=== PATIENT | male | born 1950 | race Caucasian/White ===

== ENCOUNTER 2017-06-03 18:35 | Inpatient (IN) | payer BC, MEDICARE ==
[2017-06-03] MEDS ORDERED: HYDROmorphone 0.5 MG/0.5 ML SYRINGE ONE (19:47)
[2017-06-03] MEDS ORDERED: Ondansetron HCl/PF 4 MG/2 ML Vial ONE (19:47)
--- NOTE | 2017-06-03 19:57 | RAD ---
LEFT KNEE THREE VIEWS: 06/03/17 HISTORY: Twisted knee. Total knee prosthesis is present. There is a comminuted more transversely oriented fracture of the di stal femoral shaft directly above the femoral component of the prosthesis. IMPRESSION: Distal femur fracture. POS: [facility]
[2017-06-03 20:20] LABS: INR-International Normal Ratio 1.1; PTT 26.7 SEC (22.9-36.1); Prothrombin Time 13.8 SEC (12.0-14.7)
--- NOTE | 2017-06-03 20:26 | RAD ---
AP PELVIS: 06/03/17 HISTORY: Fall with pelvic pain more left sided. Pelvic ring is intact without evidence of fracture. There are arthritic changes in the in the lower l umbar spine. IMPRESSION: No evidence of fracture. POS: [facility]
[2017-06-03 20:35] LABS: ALT (SGPT) 24 U/L (8-55); AST (SGOT) 23 U/L (5-34); Albumin 4.2 g/dL (3.4-4.8); Alkaline Phosphatase 67 U/L (40-150); Anion Gap 14 mmol/L (10-20); BUN (Urea Nitrogen) 37 mg/dL (8.4-25.7); Bilirubin, Total 0.8 mg/dL (0.2-1.2); Calc. Creatinine Clearance 0 mL/min (70-130); Calcium 9.5 mg/dL (7.8-10.44); Carbon Dioxide 22 mmol/L (23-31); Chloride 106 mmol/L (98-107); Estimated GFR-MDRD 50; Globulin 2.4 g/dL (2.4-3.5); Glucose 151 mg/dL (80-115); Potassium 4.1 mmol/L (3.5-5.1); Protein, Total 6.6 g/dL (5.8-8.1); Sodium 138 mmol/L (136-145)
--- NOTE | 2017-06-03 20:43 | RAD ---
PORTABLE CHEST: 06/03/17 HISTORY: Preop. Heart size and mediastinum are within normal limits. The lungs are clear of infiltrates. IMPRESSION: No active intrathoracic disease. POS: [facility]
[2017-06-03 21:04] LABS: #Basophils 0.1 thou/uL (0.0-0.2); #Eosinphils 0.1 thou/uL (0.0-0.7); #Lymphocytes 1.4 thou/uL (1.20-3.40); #Monocytes 0.7 thou/uL (0.11-0.59); %Basophils 0.6 % (0.0-1.0); %Eosinophils 0.8 % (0.0-10.0); %Lymphocytes 11.2 % (21.0-51.0); %Neutrophils 81.4 % (42.0-75.0); Hemoglobin 13.5 g/dL (14.0-18.0); Mean Corpuscular HGB CONC 33.9 g/dL (32.0-36.0); Mean Corpuscular Hemoglobin 32.8 pg (27.0-31.0); Mean Corpuscular Volume 96.7 fl (80.0-94.0); RBC Distribution Width 13.2 % (11.5-14.5); Red Blood Cell (RBC) Count 4.11 mill/uL (4.70-6.10); White Blood Cell (WBC) Count 12.3 thou/uL (4.8-10.8)
[2017-06-03 21:13] LABS: Mean Platelet Volume 8.7 fL (7.4-10.4); Platelet Count 146 thou/uL (130-400)
[2017-06-03 21:14] LABS: MDiff Complete? YES; Macrocytosis SLIGHT = 6-15 cells (100X) (0-5/hpf); PLT Morphology Comment Appears Adequate; Platelet Clumps MODERATE
[2017-06-03] MEDS ORDERED: Dextrose 5% in Water 1,000 ML IV PRN (22:19)
[2017-06-03] MEDS ORDERED: Ondansetron ODT 4 MG TAB PO PRN (22:19)
[2017-06-03] MEDS ORDERED: Morphine 5 MG/ML SYRINGE SLOW IVP PRN (22:19)
[2017-06-03] MEDS ORDERED: Ondansetron HCl/PF 4 MG/2 ML Vial IVP PRN (22:19)
[2017-06-03] MEDS ORDERED: Dextrose 50% Abboject 50 ML SYRINGE SLOW IVP PRN ×2 (22:19)
[2017-06-03] MEDS ORDERED: hydrALAZINE 20 MG/ML VIAL SLOW IVP PRN (22:19)
[2017-06-03] MEDS ORDERED: traMADol HCl 50 MG TAB PO PRN (22:19)
--- NOTE | 2017-06-03 23:04 | HP ---
DATE OF SERVICE: 06/03/2017 Flip Muñoz PA-C, dictating for Shmuel Way M.D. LOCATION: [facility] ER. CHIEF COMPLAINT: Evaluation status post fall. HISTORY OF PRESENT ILLNESS: This is a 67-year-old male with a presentation to the ER with a fall dallin roximately 2-1/2 hours prior to arrival. The patient reported that he was walking down steps, lost h is footing and one foot did not come with him. Pain was localized to left lower extremity and buttoc ks. Denied any pain anywhere else, any LOC or any other complaints pre or post-fall. REVIEW OF SYSTEMS: All 10 systems reviewed otherwise stated in HPI were negative. PAST MEDICAL HISTORY: Include diabetes, congestive heart failure, hyperlipidemia, sleep apnea, COPD, hypertension, coronary artery disease. PAST SURGICAL HISTORY: Includes bilateral knee surgeries, heart stent x1 in the last month, adenoid ectomy, cholecystectomy and tonsillectomy. ALLERGIES: DEMEROL. SOCIAL HISTORY: The patient does drink socially, but very rare. No tobacco use or drug use. Does l pavan at home with his . PHYSICAL EXAMINATION: VITAL SIGNS: Blood pressure 160/82, respiratory rate 16, temperature 98.5, 3/10 on pain 93% on room air. HEENT: He is atraumatic, normocephalic. Eyes 3 mm, equal, round, reactive to light. NECK: No JVD, no masses. Trachea is midline. No cervical spine tenderness in the midline. No ches t wall tenderness. RESPIRATORY: Clear bilaterally via auscultation. CARDIOVASCULAR: S1, S2 regular rate and rhythm. ABDOMEN: Soft, nontender, nondistended, obese. PELVIS: Intact. EXTREMITIES: Upper extremities are 5/5 strength. Sensation is intact. Positive pulses bilaterally. Lower extremities does have pulses intact. Sensation is intact. Tenderness to left tibial plateau as well as the distal femur area on the left. NEURO: GCS 15. SKIN: Warm, dry. LABORATORY DATA: Pending. RADIOLOGIC FINDINGS: Distal femur fracture. Chest x-ray and pelvic x-ray is pending. ASSESSMENT AND PLAN: 1. Status post fall, ground level. 2. Distal femur fracture, periprosthetic. 3. History of coronary artery disease. 4. History of diabetes. 5. History of hypertension. 6. Acute traumatic pain. PLAN: Admit the patient to the surgical floor. The patient's case has earlier been discussed with [facility] orthopedic, Dr. Cartagena. Most likely surgery tomorrow. Otherwise, the patient is stable. Pain vito l be controlled with IV and p.o. analgesics. He will be n.p.o. after midnight. We will start IV flu id at that time. We will initiate gastritis and DVT prophylaxis when appropriate. Patient has been discussed with Dr. Way who agrees with the above plan.
[2017-06-03 23:47] VITALS: BMI 34.2
[2017-06-04] MEDS: Sodium Chloride 0.9% 1,000 ML IV SCH ×2 (00:17→15:13)
[2017-06-04] MEDS: Acetaminophen 500 MG TAB PO SCH ×5 (00:17→23:23)
[2017-06-04] MEDS: Cyclobenzaprine 10 MG TAB PO PRN ×2 (00:17→09:50)
[2017-06-04] MEDS ORDERED: Carvedilol 6.25 MG TAB PO SCH (09:00)
[2017-06-04] MEDS ORDERED: Prevnar 13-Val Conj/PF 0.5 ML SYRINGE IM ONE (09:00)
[2017-06-04] MEDS: Valsartan 80 MG TAB PO SCH (09:50)
[2017-06-04] MEDS: Alfuzosin 10 MG TABDR...ER PO SCH (09:50)
[2017-06-04] MEDS: Allopurinol 300 MG TAB PO SCH ×2 (09:51→20:13)
[2017-06-04] MEDS ORDERED: CEFAZOLIN/Water 2 GM/20 ML SYRINGE SLOW IVP SCH (11:00)
--- NOTE | 2017-06-04 11:58 | CON ---
DATE OF CONSULTATION: 06/04/2017 CARDIOLOGY CONSULTATION REASON FOR CONSULTATION: Preoperative evaluation and CAD. HISTORY OF PRESENT ILLNESS: Mr. Byrne is a very pleasant 67-year-old white gentleman, who comes t o the hospital for having tripped, fell and broke the leg. He is scheduled to have surgery sometime today or tomorrow, awaiting cardiac clearance. He has a history of coronary artery disease 2 years a go. He had an abnormal stress test that ended up him needing heart catheterization, where he was fou nd to have one artery that was stented. He was on Plavix for a whole year after that and his last do se of Plavix was around a year ago. He has been on it since. He has not had any problems since. He denies any chest pain, tightness or pressure, no shortness of breath, no lightheadedness, no syncope or presyncope. He states that several years before the stent he had an episode where he had a weak heart. He was evaluated with another heart catheterization and was told that all the arteries were w ana open, and at that point, he was told that it was probably virus that made his heart weak. He was placed on several different medications for the heart and eventually the heart was back to normal. He states he was back to a 100%. He otherwise has no other issues for now. PAST MEDICAL HISTORY: 1. History of nonischemic cardiomyopathy in the past according to his report, more recently LV funct ion has been normal from his report. 2. Type 2 diabetes. 3. Hyperlipidemia. 4. Sleep apnea. 5. Chronic obstructive pulmonary disease. 6. Hypertension. 7. Coronary artery disease. PAST SURGICAL HISTORY: 1. Bilateral knee surgeries. 2. Coronary artery disease, status post stenting 2 years ago. 3. Adenoidectomy. 4. Cholecystectomy. 5. Tonsillectomy. OUTPATIENT MEDICATIONS: Include: 1. Metformin 1000 mg b.i.d. 2. Valsartan 160 mg a day. 3. Furosemide 60 mg a day. 4. Allopurinol 300 mg b.i.d. 5. Pioglitazone 45 mg a day. 6. Glimepiride 4 mg b.i.d. 7. Invokana 300 mg a day. 8. Aspirin 81 mg a day. 9. Alfuzosin 10 mg a day. 10. Victoza. 11. Ibuprofen. 12. Lipitor 80 mg at bedtime. 13. Carvedilol 12.5 mg b.i.d. ALLERGIES: DEMEROL. REVIEW OF SYSTEMS: A 12 point review of systems was done and is all negative unless stated in the hi story of present illness. PHYSICAL EXAMINATION: VITAL SIGNS: Temperature 97.8, pulse is 75, respiratory rate 14, satting 97% on 2 liters, blood pres sure 128/73. GENERAL: Awake, alert, and oriented x3, in no distress. HEENT: Normocephalic, atraumatic. NECK: Supple. LUNGS: Clear. CARDIOVASCULAR: S1, S2. No S3 or S4. No murmurs, no rubs. ABDOMEN: Soft, positive bowel sounds. EXTREMITIES: No edema. SKIN: Warm and dry. LABORATORY WORK: Reviewed. White count of 12, hemoglobin of 13, hematocrit of 39, and platelet coun t of 146. Coags were normal. Chemistries were unremarkable except for carbon dioxide of 22, anion g ap of 14, BUN of 37, creatinine of 1.4, glucose of 151. LFTs were normal. Albumin was normal. IMAGING: Chest x-ray showed no acute intrathoracic disease. EKG was reviewed. ASSESSMENT AND PLAN: 1. Hip fracture. 2. Coronary artery disease, stable. 3. Preoperative evaluation: He would be intermediate risk for an intermediate risk procedure. He s hould be able to proceed with said procedure with understood risks caveats. We will get an echocardi ogram to assess LV function and valvular structures. More than likely he should be able to proceed w ith surgery. An echo was mostly to make sure to know what to expect and how to manage fluids afterwa rds. Thank you for letting us participate in the care of your patient.
[2017-06-04] MEDS: traMADol HCl 50 MG TAB PO PRN (12:16)
[2017-06-04] MEDS ORDERED: Ropivacaine 0.5% HCl/PF (150 MG/30 ML VIAL) ONE (13:50)
[2017-06-04] MEDS ORDERED: Fentanyl 100 MCG/2 ML VIAL ONE ×4 (13:53→17:21)
[2017-06-04] MEDS ORDERED: Neomycin-Polymyxin 1 ML AMP ONE (14:11)
[2017-06-04] MEDS ORDERED: CEFAZOLIN/Water 2 GM/20 ML SYRINGE ONE (14:17)
[2017-06-04] MEDS ORDERED: Lidocaine 1% PF 5 ML VIAL ONE (14:39)
[2017-06-04] MEDS ORDERED: PHENYLEPHRINE-NS 100 MCG/ML 10 ML SYRINGE ONE (14:39)
[2017-06-04] MEDS ORDERED: ePHEDrine/0.9% NaCl/PF SYRINGE 50 mg/10 ml ONE (14:39)
[2017-06-04] MEDS ORDERED: Propofol 200 MG/20 ML VIAL ONE (14:39)
[2017-06-04] MEDS ORDERED: Ondansetron HCl/PF 4 MG/2 ML Vial ONE (14:39)
[2017-06-04] MEDS ORDERED: Glycopyrrolate 0.2 MG/ML 5 ML SYRINGE ONE (14:39)
[2017-06-04] MEDS ORDERED: Ondansetron HCl/PF 4 MG/2 ML Vial IVP PRN ×2 (16:54→17:18)
--- NOTE | 2017-06-04 16:59 | PRG ---
DATE OF SERVICE: 06/04/2017 ATTENDING PHYSICIAN: Dr. Espinoza Call. SUBJECTIVE: Mr. Byrne is a 67-year-old male who was admitted last p.m. status post fall down stai rs with subsequent left femur fracture. He was admitted by the Trauma services to the general surgic al floor. Dr. Ponce, Orthopedics, was consulted and plans on taking patient to the OR later today. Cardiology has been consulted for preoperative clearance. OBJECTIVE: VITAL SIGNS: Temperature 97.8, pulse 75, respirations 14, O2 sat 97% on 2 liters nasal cannula, bloo d pressure 128/73. GENERAL: Well-nourished, well-developed male in no acute distress. HEENT: Atraumatic, normocephalic. RESPIRATORY: Bilateral breath sounds clear. CARDIOVASCULAR: Heart sounds normal, regular rate and rhythm. ABDOMEN: Soft, nontender, nondistended. EXTREMITIES: 2+ pulses all extremities, Neurovascularly intact. Cap refill brisk. Left knee immobi lizer in place. NEUROLOGIC: GCS 15, awake, alert, oriented x3. ASSESSMENT: 1. Status post fall down stairs. 2. Status post left distal femur fracture. 3. History of coronary artery disease and coronary artery stenting. 4. History of diabetes. 5. History of hypertension. 6. Acute traumatic pain. PLAN: 1. Cardiology consult for preoperative clearance. 2. Plan for OR if cleared by Cardiology either today or tomorrow. 3. Continue IV analgesia for pain. 4. The patient is from [place] and does not have his CPAP and so is having difficulty sleeping at night. We will order CPAP to be placed by Respiratory. 5. Pepcid for PUD prophylaxis. 6. Deep venous thrombosis chemical prophylaxis when cleared by Orthopedic Surgery. The patient was seen and examined with Dr. Call who agrees with the assessment and plan. Olinda Florian NP, dictating for Espinoza Call, DO
--- NOTE | 2017-06-04 17:06 | RAD ---
LEFT FEMUR: Date: 06/04/17 HISTORY: Intraoperative films. FINDINGS: The C-arm projections, a total of 3 images, show stabilization of the distal femoral fracture with an intramedullary enrique. The knee prosthesis remains in place. IMPRESSION: Open reduction and internal fixation of a distal femoral fracture with intramedullary enrique. POS: [facility]
[2017-06-04] MEDS ORDERED: Ketorolac Tromethamine 30 MG/ML VIAL ONE (17:13)
[2017-06-04] MEDS ORDERED: Zolpidem Tartrate 5 MG TAB PO PRN (17:18)
[2017-06-04] MEDS ORDERED: Ropivacaine HCl/PF 250 ML in Premix Bag 1 BAG NERVE BLCK SCH (17:18)
[2017-06-04] MEDS ORDERED: Promethazine HCl 25 MG/ML VIAL IM PRN (17:18)
[2017-06-04] MEDS ORDERED: HYDROcodone/Acetaminophen 5/325 mg Tablet PO PRN ×2 (17:18)
[2017-06-04] MEDS ORDERED: Ropivacaine 0.2% 550 ML 550 ML NERVE BLCK SCH (17:36)
[2017-06-04] MEDS: Ketorolac Tromethamine 30 MG/ML VIAL IVP SCH ×2 (17:36→23:22)
[2017-06-04] MEDS ORDERED: Bupivacaine 0.5% 10 ML VIAL ONE (17:38)
--- NOTE | 2017-06-04 17:49 | CON ---
DATE OF CONSULTATION: 06/04/2017 HISTORY OF PRESENT ILLNESS: Mr. Byrne is a 67-year-old white male, who has had previous total kne e replacements. The patient was doing well with both knees. Yesterday, he was walking down some mann ps, lost his footing and fell and injured his left knee and thigh, had immediate pain just above the left knee. He has no neurologic complaints. He was brought to the emergency room. X-rays revealed a displaced supracondylar fracture of the left distal femur just above the total knee replacement. PAST MEDICAL HISTORY/MEDICAL ILLNESS: Diabetes, history of congestive heart failure, COPD, hypertens ion, and coronary artery disease. PAST SURGICAL HISTORY: Bilateral total knee replacements. The patient had a heart stent placed over 2 years ago and was put on Plavix after that. He has been off of Plavix now for over a year. He morris s also had cholecystectomy, tonsillectomy and adenoidectomy. ALLERGIES: DEMEROL. CURRENT MEDICATIONS: Include allopurinol, glimepiride, metformin, carvedilol, valsartan, Lasix, alfu zosin, Lipitor, aspirin, and pioglitazone. SOCIAL HISTORY: The patient rarely drinks alcohol. He does not use tobacco. PHYSICAL EXAMINATION: GENERAL: The patient is a very pleasant male, alert, and oriented x3 and cooperative with the examin ation. VITAL SIGNS: Temperature 97.8, pulse 75, respiratory rate 14, O2 saturations 97%, blood pressure 128 /73. HEENT: Unremarkable for age. Cranial nerves II through XII are grossly intact. NECK: Has good range of motion without pain. BACK: Thoracic and lumbar spine are nontender to palpation. LUNGS: Clear bilaterally. HEART: Regular rate and rhythm. ABDOMEN: Soft, nontender. Bowel sounds positive. GENITOURINARY: Not done. EXTREMITIES: Both upper extremities and right lower extremity have good range of motion without pain . Left lower extremity has swelling around the distal left thigh and above the knee. He has good pe ripheral pulses in the left foot. He is able to flex and extend his toes well. He has normal sensat ion. LABORATORY DATA: CBC: White count is 12.3, hemoglobin 13.5, hematocrit 39.8. PT 13.8 with an INR o f 1.1, PTT 26.7. Chemistries: Creatinine is 1.41, BUN is 37, glucose is 151, carbon dioxide is 22, remaining values are normal. IMAGING: X-rays of the left knee shows an anteriorly angulated displaced supracondylar fracture of t he left distal femur just above the total knee replacement. IMPRESSION: 1. Displaced supracondylar fracture of the left distal femur just above left total knee replacement. 2. Coronary artery disease. 3. Diabetes mellitus. 4. Hypertension. 5. Chronic obstructive pulmonary disease. 6. History of congestive heart failure. 7. Hyperlipidemia. 8. Sleep apnea. PLAN: As far as the left distal femur is concerned, he will require open reduction and internal fixa tion of the left distal femur. Plan on putting interlocking retrograde nail into the distal femur. If that is not possible, I will use a plate and screws. Either way, the patient will require open re duction and internal fixation of the left distal femur. He was told that he will not be able to bear weight on the left lower extremity until the distal femur is healed, which could take 3 months or ev en more. The potential risks with the condition of surgery include but are not limited to infection, bleeding, pain, damage to blood vessels or nerves, nonunion, malunion. The patient may require isabella tional surgery, DVT and PE formation. Because of the patient's cardiac history, Cardiology consult h as been put in and we are awaiting their findings. Once the patient is medically cleared, then we wi ll proceed with the surgery.
[2017-06-04] MEDS ORDERED: Dextrose 5% in Water 1,000 ML IV PRN (20:00)
[2017-06-04] MEDS ORDERED: Insulin Regular 300 UNITS/3 ML VIAL SC PRN (20:00)
[2017-06-04] MEDS ORDERED: Dextrose 50% Abboject 50 ML SYRINGE SLOW IVP PRN (20:00)
[2017-06-04] MEDS: Atorvastatin Calcium 40 MG TAB PO SCH (20:13)
--- NOTE | 2017-06-04 23:24 | OP ---
DATE OF OPERATION: 06/04/2017 PREOPERATIVE DIAGNOSIS: Comminuted supracondylar fracture of the left distal femur right above a tot al knee replacement. POSTOPERATIVE DIAGNOSIS: Comminuted supracondylar fracture of the left distal femur right above a to chester knee replacement. PROCEDURE: Interlocking intramedullary rodding of the supracondylar fracture of the left distal femu r. SURGEON: Shane Ponce MD ANESTHESIA: General. TECHNIQUE: The patient was given preoperative IV antibiotics, taken to the operating room and placed in the supine position. Satisfactory general anesthesia was performed. The left lower extremity wa s sterilely prepped and draped in the usual fashion. A longitudinal incision was made over the anter ior aspect of the knee through the previous scar where the patient had total knee replacement and the patella was dislocated laterally in the intercondylar region was entered with a wire. C-arm was use d to verify good position of the guide wire in the distal femur and into the femoral canal. Supracon dylar fracture was reduced prior to placement of the guide wire and after make sure that guide wire w as in good position in AP, lateral, and multiple oblique views. The intercondylar notch between the prosthesis was reamed with a 13-mm reamer. A 13-mm diameter, 200 mm in length cannulated retrograde femoral nail was inserted to the correct depth and two 5.0 locking screws were placed from lateral to medial and two additional 5.0 screws were placed from lateral to medial in the mid portion of the th igh. Again, this was all performed under fluoroscopic visualization and in the area of the condyles, there was more direct visualization. Once the screws were in good position and verified that the fr actures were in good alignment. The wound was copiously irrigated with antibiotic solution and the w ound was closed using #2 Vicryl for the retinacular tissue, 0 Vicryl for the fat and subcutaneous tis jojo, and the skin was closed with skin tejinder. The two small incisions in the lateral aspect of the thigh were closed with tejinder. A sterile dressing was applied and the patient was placed in a knee immobilizer. He was awakened, extubated, and transferred to recovery room in stable condition. ESTIMATED BLOOD LOSS: 300 mL. COMPLICATIONS: None.
--- NOTE | 2017-06-05 01:09 | PRG ---
DATE OF SERVICE: 06/04/2017 SUBJECTIVE: This is a 67-year-old male postop day 0 from left ORIF of the distal fracture. Patient postoperatively is doing well. No complaints. Vital signs stable. OBJECTIVE: Vital signs have been reviewed and otherwise stable. PHYSICAL EXAMINATION: EXTREMITIES: Left lower extremities with painful before, otherwise unremarkable. ASSESSMENT AND PLAN: Continued care as detailed in daily progress note. Continue to monitor. PT an d OT. Discharge disposition pending.
[2017-06-05] MEDS: Sodium Chloride 0.9% 1,000 ML IV SCH ×2 (02:42→15:38)
[2017-06-05 05:04] LABS: Anion Gap 7 mmol/L (10-20); BUN (Urea Nitrogen) 22 mg/dL (8.4-25.7); Calc. Creatinine Clearance 94 mL/min (70-130); Calcium 8.5 mg/dL (7.8-10.44); Carbon Dioxide 27 mmol/L (23-31); Chloride 109 mmol/L (98-107); Estimated GFR-MDRD 59; Glucose 113 mg/dL (80-115); Magnesium 1.7 mg/dL (1.6-2.6); Phosphorus 3.4 mg/dL (2.3-4.7); Potassium 3.9 mmol/L (3.5-5.1); Sodium 139 mmol/L (136-145)
[2017-06-05] MEDS: Ketorolac Tromethamine 30 MG/ML VIAL IVP SCH ×3 (05:08→17:49)
[2017-06-05] MEDS: Acetaminophen 500 MG TAB PO SCH ×3 (05:10→17:49)
[2017-06-05 05:23] LABS: Hemoglobin 10.7 g/dL (14.0-18.0); Lymphocytes 17 % (21-51); MDiff Complete? YES; Mean Corpuscular HGB CONC 33.3 g/dL (32.0-36.0); Mean Corpuscular Hemoglobin 32.4 pg (27.0-31.0); Mean Corpuscular Volume 97.4 fl (80.0-94.0); Mean Platelet Volume 8.4 fL (7.4-10.4); Monocytes 7 % (0-10); Neutrophil 76 % (42-75); PLT Morphology Comment PLT clumps seen-ADEQ; RBC Distribution Width 13.1 % (11.5-14.5); White Blood Cell (WBC) Count 8.4 thou/uL (4.8-10.8)
[2017-06-05] MEDS: Carvedilol 6.25 MG TAB PO SCH (09:31)
[2017-06-05] MEDS: Alfuzosin 10 MG TABDR...ER PO SCH (09:31)
[2017-06-05] MEDS: Valsartan 80 MG TAB PO SCH (09:31)
[2017-06-05] MEDS: Allopurinol 300 MG TAB PO SCH ×2 (09:32→21:41)
[2017-06-05] MEDS: Dutasteride 0.5 MG CAP PO SCH (09:32)
--- NOTE | 2017-06-05 15:27 | PRG ---
DATE OF SERVICE: 06/05/2017 ATTENDING PHYSICIAN: Dr. Espinoza Call. SUBJECTIVE: Mr. Byrne is a 67-year-old male who was admitted on 06/03/2017 status post falling do wn some stairs. He suffered a left femur fracture. He is now postop day #1 status post ORIF of the left femur. He voices no complaints on exam today. OBJECTIVE: VITAL SIGNS: BP 104/62, pulse 80, temperature 99.6, respirations 14, O2 sat 91% on room air. GENERAL: Well-nourished, well-developed adult male in no acute distress. HEENT: Normocephalic, atraumatic. RESPIRATORY: Lungs are clear to auscultation bilaterally with normal effort. CARDIOVASCULAR: Regular rate and rhythm. Normal S1, S2. EXTREMITIES: His distal pulses are 2+ bilaterally. He is neurovascularly intact x4. He has a knee immobilizer in place. ASSESSMENT: 1. Status post fall down stairs. 2. Distal left femur fracture status post open reduction and internal fixation. 3. History of coronary artery disease with coronary artery stent. 4. History of diabetes. 5. History of hypertension. 6. Acute traumatic pain. PLAN: 1. The patient reports his pain is well controlled. Continue pain control as ordered. 2. The patient is tolerating a heart healthy diet. 3. Physical therapy and OT evaluation and treatment. 4. Patient is from [place], [place] and has indicated an interest in going [facility] where he has been before. Case management is working on placement. The patient was seen and examined with Dr. Espinoza Call who agrees with the assessment and plan.
--- NOTE | 2017-06-05 16:05 | PRG ---
DATE OF SERVICE: 06/05/2017 SUBJECTIVE: Mr. Byrne is status post retrograde interlocking intramedullary rodding of the suprac ondylar fracture of the left distal femur. The patient is worked with physical therapy, was able to get out of bed. He understands he needs to be nonweightbearing on the left lower extremity. He has no neurologic complaints in the left lower extremity. The patient is afebrile. Vital signs are stable. LABORATORY DATA: Hemoglobin 10.7, hematocrit 32.1. Chemistries are normal. Left lower extremity is neurovascularly intact. Dressing is clean and dry. The patient is to continue to work with physical therapy, ambulating with either walker or crutches. He needs to continue to be nonweightbearing on the left lower extremity. The patient wants to try t o get into a nursing home facility where he is from in [place], be close to his orthopedic docto r who did his total knee replacements. We will see if the case management cannot work with him as fa r as getting him placed where he desires.
[2017-06-05] MEDS ORDERED: Liraglutide [Victoza 3-Pak] 0.6 MG SQ SCH (21:00)
[2017-06-05] MEDS: Atorvastatin Calcium 40 MG TAB PO SCH (21:41)
[2017-06-05] MEDS: Glimepiride 4 MG TAB PO SCH (21:41)
--- NOTE | 2017-06-05 22:32 | PRG ---
DATE OF SERVICE: 06/05/2017 SUBJECTIVE: The patient, overall, is doing well, postop day #2 from his ORIF of the distal femur. T he only complaint he has is some discomfort, posterior leg of the knee brace, so an extra padding was provided and he is doing better. OBJECTIVE: Vital signs have been reviewed and otherwise stable. Physical exam has unchanged. ASSESSMENT AND PLAN: Continued care as detailed in daily progress note. Continue to monitor. Disch arge disposition is pending. Continue home meds.
[2017-06-06] MEDS: Acetaminophen 500 MG TAB PO SCH ×5 (00:21→23:09)
[2017-06-06] MEDS: Ketorolac Tromethamine 30 MG/ML VIAL IVP SCH ×3 (00:22→12:10)
[2017-06-06] MEDS: Sodium Chloride 0.9% 1,000 ML IV SCH ×2 (02:48→18:12)
[2017-06-06] MEDS ORDERED: Canagliflozin [Invokana] 300 MG PO SCH (09:00)
[2017-06-06] MEDS: Carvedilol 6.25 MG TAB PO SCH (09:10)
[2017-06-06] MEDS: metFORMIN XR 500 MG TAB PO SCH ×2 (09:11→17:16)
[2017-06-06] MEDS: Glimepiride 4 MG TAB PO SCH ×2 (09:11→20:29)
[2017-06-06] MEDS: Valsartan 80 MG TAB PO SCH (09:11)
[2017-06-06] MEDS: Pioglitazone HCl 45 MG TAB PO SCH (09:11)
[2017-06-06] MEDS: Allopurinol 300 MG TAB PO SCH ×2 (09:11→20:29)
[2017-06-06] MEDS: Dutasteride 0.5 MG CAP PO SCH (09:12)
[2017-06-06] MEDS: Alfuzosin 10 MG TABDR...ER PO SCH (09:12)
[2017-06-06] MEDS: Enoxaparin Sodium 40 MG/0.4 ML SYRINGE SC SCH (12:11)
--- NOTE | 2017-06-06 12:20 | PRG-2 ---
DATE OF SERVICE: 06/06/2017 ATTENDING PHYSICIAN: Dr. Espinoza Call SUBJECTIVE: This is a 67-year-old male who was admitted on 06/03/2012 due to a left femoral condyle fracture secondary to a falling down 2 stairs. Currently, postop day #2 status post open reduction internal fixation. He states that pain is relatively controlled. He is ambulating with the help of PT. OBJECTIVE: VITAL SIGNS: Today are temp of 99.0, pulse 99, respiratory rate 18, O2 sat 94% on 2 liters nasal cannula, blood pressure 128/57. GENERAL: The patient is lying in bed in no acute distress, appropriately interactive. HEENT: Normocephalic, atraumatic. LUNGS: Clear to auscultation. Rise and fall of chest is equal bilaterally. CARDIOVASCULAR: Regular rate and rhythm. EXTREMITIES: The patient is neurovascularly intact and is able to move all 4 extremities. Left knee immobilizer is in place. NEURO: GCS 15, alert and oriented x3. ASSESSMENT: 1. Status post open reduction and internal fixation secondary to a left femoral condylar fracture after a fall. 2. History of diabetes. 3. Hypertension. 4. Acute traumatic pain. PLAN: 1. Pain is generally well controlled. The patient is tolerating physical therapy. Will continue regimen as currently ordered. 2. Discharge planning. The patient is planning on going home to [place] with home health that was used in the past. Case management is currently working on options if the patient is to discharge. This will likely happen tomorrow. 3. Urinary retention. The patient's voiding has improved with addition of Avodart. Follow up with PCP outpatient. The patient was seen with Dr. Espinoza Call who agrees with the above assessment and plans. [facility]
--- NOTE | 2017-06-06 12:42 | PRG ---
DATE OF SERVICE: 06/06/2017 SUBJECTIVE: Mr. Byrne was able to get up out of bed and ambulate with a walker with physical scientist apy. He was able to successfully perform that nonweightbearing on the left lower extremity. States that it was easier and better for him today. He feels that he is getting stronger. OBJECTIVE: The patient has been afebrile. Vital signs remained stable. PLAN: The patient can continue to work with physical therapy. He is working with shoe parts caser merline young to get back to his home in [place]. He has an orthopedist that did his total knee replacements a nd wants to try to get into a rehab facility close to his orthopedist in his home. Case management i s trying to assist him with that. In the meantime, he will continue with physical therapy.
[2017-06-06] MEDS ORDERED: Docusate 100 MG CAP PO SCH (15:15)
[2017-06-06] MEDS ORDERED: Senokot 8.6 MG TAB PO SCH (15:15)
[2017-06-06] MEDS: Atorvastatin Calcium 40 MG TAB PO SCH (20:29)
[2017-06-07] MEDS: traMADol HCl 50 MG TAB PO PRN ×2 (01:24→22:11)
--- NOTE | 2017-06-07 01:45 | PRG ---
DATE OF SERVICE: 06/06/2017 SUBJECTIVE: This is a 67-year-old male, postop day #3, status post periprosthetic distal femur fract ure repair. The patient is pending final disposition home with outpatient PT versus inpatient rehab in [place]. Upon my evaluation this evening, the patient vocalized no complaint. OBJECTIVE: VITAL SIGNS: Reviewed and stable. The patient has been on room air. He is afebrile. GENERAL: Resting in bed, in no acute distress. LUNGS: Breathing is nonlabored. ASSESSMENT AND PLAN: As documented in daily progress note. Follow up with case management tomorrow. Otherwise, continue care as ordered. Continue to monitor.
[2017-06-07] MEDS: Acetaminophen 500 MG TAB PO SCH ×4 (05:00→23:39)
[2017-06-07] MEDS: Carvedilol 6.25 MG TAB PO SCH (09:48)
[2017-06-07] MEDS: Pioglitazone HCl 45 MG TAB PO SCH (09:48)
[2017-06-07] MEDS: Alfuzosin 10 MG TABDR...ER PO SCH (09:48)
[2017-06-07] MEDS: Dutasteride 0.5 MG CAP PO SCH (09:48)
[2017-06-07] MEDS: metFORMIN XR 500 MG TAB PO SCH ×2 (09:48→17:40)
[2017-06-07] MEDS: Allopurinol 300 MG TAB PO SCH ×2 (09:49→20:38)
[2017-06-07] MEDS: Valsartan 80 MG TAB PO SCH (09:49)
[2017-06-07] MEDS: Glimepiride 4 MG TAB PO SCH ×2 (09:49→20:38)
[2017-06-07] MEDS: Enoxaparin Sodium 40 MG/0.4 ML SYRINGE SC SCH (09:49)
[2017-06-07] MEDS: Docusate 100 MG CAP PO SCH (10:47)
[2017-06-07] MEDS: Senokot 8.6 MG TAB PO SCH (10:48)
[2017-06-07] MEDS: HumaLOG 300 UNITS/3 ML VIAL SC PRN (11:43)
--- NOTE | 2017-06-07 11:51 | PRG-2 ---
DATE OF SERVICE: 06/07/2017 ATTENDING PHYSICIAN: Dr. Espinoza Call SUBJECTIVE: A 67-year-old male who was admitted on 06/03/2017 due to left femoral condyle fracture s econdary to falling down stairs while moving. The patient is postop day #3 status post open reductio n internal fixation. Pain control, the patient currently has a pain catheter in place with the plan to stop today. He is ambulating with PT. No acute events overnight. He has no specific complaints today. OBJECTIVE: VITAL SIGNS: Temperature 97.3, pulse 82, blood pressure 147/77, respiratory 16, O2 sat 94% on 2 lite rs. GENERAL: The patient is resting comfortably in bed in no acute distress, appropriately interactive. HEENT: Normocephalic and atraumatic. LUNGS: Clear to auscultation bilaterally. CARDIOVASCULAR: Regular rate and rhythm. ABDOMEN: Soft, nontender, nondistended. EXTREMITIES: The patient is neurovascularly intact, he is able move all 4 extremities. A left knee immobilizer in place with pain catheter in place. Dressings are clean. NEUROLOGIC: GCS of 15. Alert and oriented x3. No focal neurological deficits. ASSESSMENT: 1. Status post open reduction and internal fixation left femoral condylar fracture secondary to a fa ll. 2. Diabetes. 3. Hypertension. 4. Acute traumatic pain. PLAN: 1. Continue PT. Pain appears to be well controlled. The plan is to discontinue the pain pump today . The patient is on oral medications. We will continue PT inpatient after discharge from here. 2. Discharge planning; the plan is to have the patient return to [place] for his rehab. The patie nt will have to have somebody drive from [place], this will happen tomorrow morning as that way the y can get him back by tomorrow evening and he will continue his rehab there. Case management is curr ently working to find a specific facility for him to go to. 3. Hypertension. Continue home medications. The patient is reasonably well controlled here. He wi ll need to follow up with PCP for optimization of his blood pressure. 4. Diabetes. The patient's blood sugars have been reasonably well controlled over the last 24 hours , blood sugars between 120 and 190, but typically under 180. This will need additional follow up in outpatient setting for optimum medical management.
[2017-06-07] MEDS: Atorvastatin Calcium 40 MG TAB PO SCH (20:37)
--- NOTE | 2017-06-07 21:48 | PRG ---
DATE OF SERVICE: 06/07/2017. SUBJECTIVE: This is a 67-year-old gentleman postop day 3 for a femoral fracture repair. The patient is working with physical therapy. Pain is controlled via p.o. analgesics. He is awaiting facility and insurance approval at an [facility] inpatient rehabilitation center. Upon my evaluation, he voc alized no complaint. OBJECTIVE: VITAL SIGNS: Reviewed and stable. GENERAL: He is afebrile, resting in bed in no acute distress. LUNGS: Breathing is nonlabored. EXTREMITIES: Left lower extremity orthopedic dressing is clean, dry, and intact. ASSESSMENT AND PLAN: As documented in daily progress note. Continue care as ordered. Continue belkis toring.
[2017-06-07] MEDS: Cyclobenzaprine 10 MG TAB PO PRN (23:41)
[2017-06-08] MEDS: Acetaminophen 500 MG TAB PO SCH ×4 (05:42→23:10)
[2017-06-08] MEDS: metFORMIN XR 500 MG TAB PO SCH ×2 (08:33→17:56)
[2017-06-08] MEDS: Pioglitazone HCl 45 MG TAB PO SCH (08:33)
[2017-06-08] MEDS: Enoxaparin Sodium 40 MG/0.4 ML SYRINGE SC SCH (08:33)
[2017-06-08] MEDS: Docusate 100 MG CAP PO SCH (08:34)
[2017-06-08] MEDS: Dutasteride 0.5 MG CAP PO SCH (08:34)
[2017-06-08] MEDS: Valsartan 80 MG TAB PO SCH (08:34)
[2017-06-08] MEDS: Glimepiride 4 MG TAB PO SCH ×2 (08:34→21:35)
[2017-06-08] MEDS: Allopurinol 300 MG TAB PO SCH ×2 (08:34→21:35)
[2017-06-08] MEDS: Carvedilol 6.25 MG TAB PO SCH (08:34)
[2017-06-08] MEDS: Alfuzosin 10 MG TABDR...ER PO SCH (08:34)
[2017-06-08] MEDS: Senokot 8.6 MG TAB PO SCH (08:35)
--- NOTE | 2017-06-08 11:37 | PRG-2 ---
DATE OF SERVICE: 06/08/2017 ATTENDING PHYSICIAN: Dr. Espinoza Call. SUBJECTIVE: This is a 67-year-old male who was admitted on 06/03/2017 due to a left femoral condyle fracture secondary to falling down two stairs. The patient is postop day #4 status post ORIF of the left femoral condyle. The patient is doing well today, has no specific complaints. He states that veena frederick now wants to go to inpatient rehab in [place] where his home is. There are no acute events overn ight. OBJECTIVE: VITAL SIGNS: Temperature 98.1, pulse 87, respiratory rate 16, O2 sat 96% on room air, blood pressure 144/86. GENERAL: The patient is currently in bed, in no acute distress. Appropriately interactive. HEENT: Normocephalic, atraumatic. LUNGS: Clear to auscultation bilaterally. CARDIOVASCULAR: Regular rate and rhythm. ABDOMEN: Soft, tender, nondistended. EXTREMITIES: Neurovascularly intact in the lower extremities. The bandage over the left knee appear s clean. NEUROLOGIC: GCS of 15. Alert and oriented x3. No focal neurological deficits. ASSESSMENT: 1. Status post open reduction internal fixation of left femoral condylar fracture secondary to fall. 2. Diabetes. 3. Hypertension. 4. Acute joint pain. PLAN: 1. Continue PT while here. We are currently waiting for insurance approval for his chosen inpatient facility. At that time, he will be ready to discharge. 2. Diabetes. The patient has been fairly hyperglycemic since admission with typical blood sugars va rying anywhere between 120 and 237. Continue current management. Follow up with PCP outpatient. Di scussed appropriate diabetic diet. 3. Hypertension. Continue home medications. The patient's blood pressure is typically controlled w ith only mild elevations that are likely associated with pain. Decision was discussed with Dr. Espinoza Call who agrees with the above assessment and plan.
[2017-06-08] MEDS: traMADol HCl 50 MG TAB PO PRN ×2 (17:57→23:10)
[2017-06-08] MEDS: HumaLOG 300 UNITS/3 ML VIAL SC PRN (18:25)
[2017-06-08] MEDS: Atorvastatin Calcium 40 MG TAB PO SCH (21:34)
[2017-06-08] MEDS: Cyclobenzaprine 10 MG TAB PO PRN (21:35)
--- NOTE | 2017-06-08 22:59 | PRG ---
DATE OF SERVICE: 06/08/2017 SUBJECTIVE: This is a 67-year-old male status post fall, postop day #4 femoral fracture repair. The patient was planning for discharge to inpatient rehabilitation facility in [place], however, bernarda young transportation issues. Apparently, the accepting facility could not accept him after 11:00 a.m. to day morning and his transportation cannot arrive sooner. Otherwise, the patient vocalized no comp laints upon my evaluation. OBJECTIVE: VITAL SIGNS: Reviewed and stable. GENERAL: The patient is resting in bed, in no acute distress. RESPIRATORY: Breathing is nonlabored on room air. EXTREMITIES: Orthopedic dressing is clean, dry, and intact. ASSESSMENT AND PLAN: As documented in daily progress note. Continue care as ordered. Continue to onitor. Await final disposition after assistance with case management regarding patient's plan to [place] and we admitted to inpatient rehabilitation from home after the weekend.
[2017-06-09] MEDS: traMADol HCl 50 MG TAB PO PRN ×2 (06:53→23:17)
[2017-06-09] MEDS: Acetaminophen 500 MG TAB PO SCH ×4 (06:53→23:17)
[2017-06-09] MEDS: Alfuzosin 10 MG TABDR...ER PO SCH (08:50)
[2017-06-09] MEDS: metFORMIN XR 500 MG TAB PO SCH ×2 (08:50→17:41)
[2017-06-09] MEDS: Pioglitazone HCl 45 MG TAB PO SCH (08:50)
[2017-06-09] MEDS: Dutasteride 0.5 MG CAP PO SCH (08:50)
[2017-06-09] MEDS: Allopurinol 300 MG TAB PO SCH ×2 (08:50→19:55)
[2017-06-09] MEDS: Glimepiride 4 MG TAB PO SCH ×2 (08:50→19:56)
[2017-06-09] MEDS: Carvedilol 6.25 MG TAB PO SCH (08:51)
[2017-06-09] MEDS: Enoxaparin Sodium 40 MG/0.4 ML SYRINGE SC SCH (08:51)
[2017-06-09] MEDS: Valsartan 80 MG TAB PO SCH (08:51)
[2017-06-09] MEDS: Docusate 100 MG CAP PO SCH (10:06)
[2017-06-09] MEDS: Senokot 8.6 MG TAB PO SCH (10:06)
--- NOTE | 2017-06-09 17:31 | PRG ---
DATE OF SERVICE: 06/09/2017 ATTENDING PHYSICIAN: Espinoza Call D.O. SUBJECTIVE: The patient is a 67-year-old male who was admitted on 06/03/2017 with a left femoral con dyle fracture secondary to falling down some stairs. He is now postop day #5 status post ORIF. The patient is doing well. He was accepted to a rehab hospital in [place] where he would like to retur n; however, he needed to be there by 11:00 this morning and was unable to get a ride in time. He rem ains in the hospital waiting to get transportation to [place]. He has been approved to transfer to rehab in [place] on Monday and insurance is approved to him staying [place] the [place]. OBJECTIVE: VITAL SIGNS: BP 146/81, pulse 95, temperature 97.7, respirations 16, O2 sat 92% on room air. GENERAL: The patient is a well-nourished, well-developed adult male in no acute distress. HEENT: He is normocephalic and atraumatic. RESPIRATORY: His lungs are clear to auscultation bilaterally with normal effort. CARDIOVASCULAR: He has a regular rate and rhythm. Normal S1 and S2. EXTREMITIES: His distal pulses are 2+ bilaterally. He is neurovascularly intact x4. He has a knee immobilizer in place. LABORATORY FINDINGS: His labs are significant for elevated glucose of 152 today. RADIOGRAPHIC FINDINGS: The patient has no radiographs to review today. ASSESSMENT: 1. Status post fall down stairs. 2. Distal left femur fracture status post open reduction and internal fixation. 3. History of coronary artery disease with coronary artery stent. 4. History of diabetes. 5. History of hypertension. 6. Acute traumatic pain. PLAN: 1. The patient is medically stable and reports adequate pain control. He is able to ambulate around the floor without difficulty. Continue pain control as currently ordered. 2. The patient is tolerating a heart healthy diet. 3. Continue PT and OT as needed. 4. Patient is expected to discharge to rehab in [place] on Monday morning. The patient has alread y been accepted. This patient was seen and examined along with Dr. Espinoza Call on rounds this morning who agrees wit h the assessment and plan.
[2017-06-09] MEDS: Cyclobenzaprine 10 MG TAB PO PRN (17:41)
[2017-06-09] MEDS: Atorvastatin Calcium 40 MG TAB PO SCH (19:56)
[2017-06-10] MEDS: Acetaminophen 500 MG TAB PO SCH ×4 (00:46→17:38)
[2017-06-10] MEDS: Cyclobenzaprine 10 MG TAB PO PRN ×2 (02:36→17:38)
[2017-06-10] MEDS: traMADol HCl 50 MG TAB PO PRN ×3 (05:53→17:38)
[2017-06-10] MEDS: Carvedilol 6.25 MG TAB PO SCH (10:04)
[2017-06-10] MEDS: metFORMIN XR 500 MG TAB PO SCH ×2 (10:04→17:38)
[2017-06-10] MEDS: Pioglitazone HCl 45 MG TAB PO SCH (10:04)
[2017-06-10] MEDS: Docusate 100 MG CAP PO SCH (10:04)
[2017-06-10] MEDS: Glimepiride 4 MG TAB PO SCH ×2 (10:04→20:03)
[2017-06-10] MEDS: Valsartan 80 MG TAB PO SCH (10:04)
[2017-06-10] MEDS: Dutasteride 0.5 MG CAP PO SCH (10:04)
[2017-06-10] MEDS: Senokot 8.6 MG TAB PO SCH (10:05)
[2017-06-10] MEDS: Alfuzosin 10 MG TABDR...ER PO SCH (10:05)
[2017-06-10] MEDS: Allopurinol 300 MG TAB PO SCH ×2 (10:05→20:03)
[2017-06-10] MEDS: Enoxaparin Sodium 40 MG/0.4 ML SYRINGE SC SCH (10:06)
--- NOTE | 2017-06-10 15:24 | PRG ---
DATE OF SERVICE: 06/10/2017 SUBJECTIVE: The patient is status post fall down stairs resulting in a left femoral condyle fracture , which he has subsequently undergone an ORIF for. He tolerated the procedure well and has been work ing with physical and occupational therapy. He is tolerating a diet and his bowel function has retur rodolfo. This morning, the patient has no complaints. He is just currently awaiting placement, which is scheduled for Monday back in [place]. OBJECTIVE: VITAL SIGNS: Temperature is 98.3, heart rate 87, blood pressure 142/79, respirations 18 and oxygen s aturation 98% on room air. GENERAL: The patient is resting comfortably in bed. He is awake, alert and oriented x3. [place] ma Scale is 15. HEENT: Unremarkable. LUNGS: Clear to auscultation bilaterally. HEART: Regular rate and rhythm. ABDOMEN: Soft, flat and nontender with active bowel sounds. EXTREMITIES: Neurovascularly intact x4. The patient has a dressing and a knee immobilizer on the le ft lower extremity, which are clean, dry and intact. LABORATORY: There are no labs or radiographs to review this morning. ASSESSMENT AND PLAN: 1. Status post fall. 2. Status post open reduction internal fixation for distal femur fracture. Plan will be to continue physical and occupational therapy and await placement. This case was discus sed with Dr. Call this morning during rounds.
[2017-06-10] MEDS: Atorvastatin Calcium 40 MG TAB PO SCH (20:04)
[2017-06-11] MEDS: Cyclobenzaprine 10 MG TAB PO PRN ×2 (00:36→12:51)
[2017-06-11] MEDS: traMADol HCl 50 MG TAB PO PRN ×2 (00:36→12:52)
[2017-06-11] MEDS: Acetaminophen 500 MG TAB PO SCH ×4 (05:31→23:36)
[2017-06-11] MEDS: Glimepiride 4 MG TAB PO SCH ×2 (09:13→21:42)
[2017-06-11] MEDS: Dutasteride 0.5 MG CAP PO SCH (09:13)
[2017-06-11] MEDS: Docusate 100 MG CAP PO SCH (09:13)
[2017-06-11] MEDS: Senokot 8.6 MG TAB PO SCH (09:13)
[2017-06-11] MEDS: Valsartan 80 MG TAB PO SCH (09:13)
[2017-06-11] MEDS: Alfuzosin 10 MG TABDR...ER PO SCH (09:13)
[2017-06-11] MEDS: HYDROcodone/Acetaminophen 10/325 mg Tablet PO PRN ×2 (09:14→17:55)
[2017-06-11] MEDS: Allopurinol 300 MG TAB PO SCH ×2 (09:14→21:43)
[2017-06-11] MEDS: Enoxaparin Sodium 40 MG/0.4 ML SYRINGE SC SCH (09:14)
[2017-06-11] MEDS: Carvedilol 6.25 MG TAB PO SCH (09:14)
[2017-06-11] MEDS: metFORMIN XR 500 MG TAB PO SCH ×2 (09:14→17:55)
[2017-06-11] MEDS: Pioglitazone HCl 45 MG TAB PO SCH (09:19)
--- NOTE | 2017-06-11 13:40 | PRG ---
DATE OF SERVICE: 06/11/2017 SUBJECTIVE: Patient is status post fall down stairs resulting in a left femoral condyle fracture and he subsequently has undergone an open reduction internal fixation for the same. The patient tolerat ed this procedure well and has been working with physical and occupational therapy and he has been pr ogressing with the services. The patient is currently awaiting placement back in [place] and this is predicted to be tomorrow when he will be discharged from our facility. PHYSICAL EXAMINATION: VITAL SIGNS: Temperature 98.4, heart rate 66, blood pressure 111/73, respirations 16, oxygen saturat ion 94% on room air. HEENT: Unremarkable. GENERAL: The patient is awake, alert, and oriented x3. [place] coma scale is 15. LUNGS: Clear to auscultation bilaterally with good inspiratory and expiratory effort. HEART: Regular rate and rhythm. ABDOMEN: Soft, flat, nontender with active bowel sounds. EXTREMITIES: Neurovascularly intact x4, left lower extremity has a clean, dry, and intact bandage an d a knee immobilizer. LABORATORY DATA: There are no labs or radiographs to review this morning. ASSESSMENT AND PLAN: 1. Status post fall. 2. Left femoral condyle fracture status post open reduction internal fixation of same. PLAN: Will be to continue physical and occupational therapy, pain control and await placement decisi on tomorrow. The case was discussed with Dr. Call in the morning.
[2017-06-11] MEDS: Atorvastatin Calcium 40 MG TAB PO SCH (21:42)
--- NOTE | 2017-06-11 23:13 | PRG ---
DATE OF SERVICE: 06/11/2017 SUBJECTIVE: This is a 67-year-old gentleman status post fall with left femoral condylar fracture geovani t has been repaired. Patient is currently awaiting placement in inpatient rehabilitation. The patie nt states he is to be discharged in the morning to the facility in [place]. Upon my evaluation, he vocalized no complaints. OBJECTIVE: VITAL SIGNS: Reviewed and stable. GENERAL: The patient is resting in bed in no acute distress. Breathing is unlabored. ASSESSMENT AND PLAN: As documented in daily progress note. Continue care as ordered. Continue to m onitor. Likely discharge in a.m.
[2017-06-12 04:52] VITALS: BP 132/71; TEMP 98
[2017-06-12] MEDS: Acetaminophen 500 MG TAB PO SCH (06:56)
--- NOTE | 2017-06-12 13:59 | DIS ---
DATE OF ADMISSION: 06/03/2017 DATE OF DISCHARGE: 06/12/2017 ADMITTING PHYSICIAN: Shmuel Way M.D. DISCHARGING PHYSICIAN: Espinoza Call D.O. CHIEF COMPLAINT: Evaluation, status post fall. HISTORY OF PRESENT ILLNESS: The patient is a 67-year-old male who presented to the [facility] ED on 06/03/2017 after falling down approximately 2 steps. He was evaluated in the ED and found to have a left distal periprosthetic femur fracture. The patient had a past medical history of diabetes, conge stive heart failure, hyperlipidemia, sleep apnea, COPD, hypertension, and coronary artery disease. G iven his cardiac history, Dr. Moore was consulted prior to surgery for medical clearance. Patient u nderwent surgical fixation of his left femur on 06/04/2017. ADMISSION DIAGNOSES: 1. Distal left femur fracture, periprosthetic. 2. History of coronary artery disease. 3. History of diabetes. 4. History of hypertension. DISCHARGE DIAGNOSES: 1. Distal left femur fracture, periprosthetic, status post open reduction and internal fixation. 2. History of coronary artery disease. 3. History of diabetes. 4. History of hypertension. PROCEDURES: The patient underwent interlocking intramedullary rodding of the supracondylar fracture of the left distal femur. The patient's hospital course was somewhat prolonged due to difficulty in finding rehabilitation plac ement in the patient's hometown. The patient was successfully discharged to rehabilitation in [facility] in good condition on 06/12/2017. DISCHARGE MEDICATIONS: The patient was discharged with all of his inpatient medications without home prescriptions. Please see electronic medical record for details. ACTIVITY INSTRUCTIONS: The patient was discharged with orthopedic limitations. He is to wear his kn ee immobilizer at all times. NOURISHMENT INSTRUCTIONS: The patient has been on a heart healthy, low sodium diet. THERAPY INSTRUCTIONS: The patient will undergo occupational and physical therapy rehabilitation. EQUIPMENT AND SUPPLIES: The patient was given a knee immobilizer. FOLLOWUP INSTRUCTIONS: The patient is to follow up with Dr. Shane Ponce in 3-4 weeks. Per discussi on with patient, patient may follow up with his physician in [place] instead. The patient also ins tructed to follow up with Dr. Espinoza Call in 14 days as able. Again, the patient may elect to foll ow up with his physician in [place].
--- NOTE | 2017-06-14 10:49 | EKG ---
Test Reason : PREOP Blood Pressure : / mmHG Vent. Rate : 082 BPM Atrial Rate : 082 BPM P-R Int : 130 ms QRS Dur : 094 ms QT Int : 382 ms P-R-T Axes : 062 044 039 degrees QTc Int : 446 ms Sinus rhythm with occasional Premature ventricular complexes Otherwise normal ECG No previous ECGs available Confirmed by JERAMIE CALDERON ([id number]) on 06/14/2017 10:48:56 AM Referred By: BRENDAN Confirmed By:JERAMIE CALDERON
== END 2017-06-12 07:45 | DRG 481 ==
LOC: ERS 18:35 → SURG B 22:00
PROVIDERS: ADMIT Surgery; ATTEND Surgery
PROC: 0QSC06Z Reposition Left Lower Femur with Intramedullary Internal Fixation Device, Open Approach (ICD-10-PCS; principal; 2017-06-04)
PROC: 3E0T3BZ Introduction of Anesthetic Agent into Peripheral Nerves and Plexi, Percutaneous Approach (ICD-10-PCS; 2017-06-04)
DX: S72.452A Displaced supracondylar fracture without intracondylar extension of lower end of left femur, initial encounter for closed fracture (principal); I42.9 Cardiomyopathy, unspecified; J44.9 Chronic obstructive pulmonary disease, unspecified; E11.9 Type 2 diabetes mellitus without complications; W10.9XXA Fall (on) (from) unspecified stairs and steps, initial encounter; I10 Essential (primary) hypertension; Z95.5 Presence of coronary angioplasty implant and graft; E78.5 Hyperlipidemia, unspecified; I25.10 Atherosclerotic heart disease of native coronary artery without angina pectoris; G47.30 Sleep apnea, unspecified; Z96.652 Presence of left artificial knee joint
CPT/HCPCS: 36415; 36416; 71045; 72170; 76001; 80048; 80053; 83735; 84100; 85007; 85025; 85027; 85610; 85730; 93005; 93010; 93306; 94640; 94660; 96361; 96374; 96375; J2270; A4306; C1713; C1769; G0390; G8978-GP-CM; G8979-GP-CK; G8987-GO-CI; G8988-GO-CI; G8989-GO-CI; J1170; J1650; J1885; J2001; J2405; J2704; J2795; J3010; J3490; J7620